=== PATIENT | male | born 1940 ===

== ENCOUNTER 2018-10-17 12:09 | Emergency (ER) | payer MEDICARE ==
[2018-10-17 12:30] VITALS: RESP 18
--- NOTE | 2018-10-17 14:20 | C.PDOC ---
History Of Present Illness 77 year old male presents to the ED for evaluation of right wrist pain which began after he tripped and fell in parking lot around 2 hours [employer]. Patient is complaining of pain and swelling to right wrist. He denies head injury, LOC, extremity numbness/weakness. Time Seen by Provider: 10/17/18 12:46 Chief Complaint (Nursing): Finger,Hand,&Wrist History Per: Patient History/Exam Limitations: no limitations Onset/Duration Of Symptoms: Hrs (2) Current Symptoms Are (Timing): Still Present Additional History Per: Patient PMH Reviewed: Historical Data, Nursing Documentation, Vital Signs - Medical History PMH: No Chronic Diseases - Surgical History Surgical History: No Surg Hx - Family History Family History: States: Unknown Family Hx - Immunization History Hx Tetanus Toxoid Vaccination: No Hx Influenza Vaccination: No Hx Pneumococcal Vaccination: No ED Course And Treatment O2 Sat by Pulse Oximetry: 98 (on RA) Pulse Ox Interpretation: Normal Disposition - Disposition Referrals: Jose Keen MD [Staff Provider] - Disposition: HOME/ ROUTINE Disposition Time: 14:19 Condition: STABLE Additional Instructions: Follow up with PMD and Orthopedist within 1-2 days. Return to ED if feel worse. Prescriptions: oxyCODONE/Acetaminophen [Percocet 5/325 mg Tab] 1 tab PO QID PRN #20 tab PRN Reason: Pain Instructions: Wrist Fracture (DC) Forms: [facility] (Maltese) - Clinical Impression Clinical Impression: Wrist fracture, right - PA / SECTION CHIEF / Resident Statement MD/DO has reviewed & agrees with the documentation as recorded. - Scribe Statement The provider has reviewed the documentation as recorded by the Scribe (Karen Enrique) All medical record entries made by the Scribe were at my direction and personally dictated by me. I have reviewed the chart and agree that the record accurately reflects my personal performance of the history, physical exam, medical decision making, and the department course for this patient. I have also personally directed, reviewed, and agree with the discharge instructions and disposition.
[2018-10-17 14:31] VITALS: BP 134/77; PULSE 83; TEMP 98.6; O2SAT 96
--- NOTE | 2018-10-17 15:47 | C.PDOC ---
History Of Present Illness 77 year old male presents to the ED for evaluation of right wrist pain which began after he tripped and fell in parking lot around 2 hours [employer]. Patient is complaining of pain and swelling to right wrist. He denies head injury, LOC, extremity numbness/weakness, dizziness, chest pain and shortness of breath. Time Seen by Provider: 10/17/18 12:46 Chief Complaint (Nursing): Finger,Hand,&Wrist History Per: Patient History/Exam Limitations: no limitations Onset/Duration Of Symptoms: Hrs (2) Current Symptoms Are (Timing): Still Present Quality: "Pain" Additional History Per: Patient Past Medical History Reviewed: Historical Data, Nursing Documentation, Vital Signs Vital Signs: Last Vital Signs Temp 98.6 F 10/17/18 14:30 Pulse 83 10/17/18 14:30 Resp 18 10/17/18 14:30 BP 134/77 10/17/18 14:30 Pulse Ox 96 10/17/18 14:30 - Medical History PMH: HTN Surgical History: No Surg Hx Family History: States: Unknown Family Hx - Social History Hx Alcohol Use: No Hx Substance Use: No - Immunization History Hx Tetanus Toxoid Vaccination: No Hx Influenza Vaccination: No Hx Pneumococcal Vaccination: No Review Of Systems Cardiovascular: Negative for: Chest Pain Respiratory: Negative for: Shortness of Breath Musculoskeletal: Positive for: Other (right wrist pain and swelling ) Neurological: Negative for: Weakness, Numbness, Dizziness, Other (head injury, LOC ) Physical Exam - Physical Exam Appears: Non-toxic, No Acute Distress Skin: Normal Color, Warm, Dry Head: Atraumatic, Normacephalic Eye(s): bilateral: Normal Inspection Neck: Normal ROM, Supple Chest: Symmetrical, No Deformity, No Tenderness Cardiovascular: Rhythm Regular Respiratory: Normal Breath Sounds Extremity: Normal ROM (to fingers of right hand ), Capillary Refill (less than 2 seconds ), Swelling (right wrist ) Pulses: Left Radial: Normal, Right Radial: Normal Neurological/Psych: Oriented x3, Normal Speech, Normal Cognition, Normal Sensation Gait: Steady ED Course And Treatment O2 Sat by Pulse Oximetry: 96 (on RA) Pulse Ox Interpretation: Normal Progress Note: Right wrist XR ordered, XR shows minimally displaced fracture of the distal radius and ulnar styloid. Sugar tong splint was applied by CP and checked by me. Arm sling was applied. On reassessment, patient is resting comfortably, showing no signs of distress and is stable for discharge. Patient advised to f/u with orthopedist within 1-2 days for further evaluation. Disposition - Disposition Referrals: Jose Keen MD [Staff Provider] - Disposition: HOME/ ROUTINE Disposition Time: 14:20 Condition: STABLE Additional Instructions: Follow up with PMD and Orthopedist within 1-2 days. Return to ED if feel worse. Prescriptions: oxyCODONE/Acetaminophen [Percocet 5/325 mg Tab] 1 tab PO QID PRN #20 tab PRN Reason: Pain Instructions: Wrist Fracture (DC) Forms: [employer] (Polish) - Clinical Impression Clinical Impression: Wrist fracture, right - PA / ELECTRONICS TECHNOLOGY INSTRUCTOR / Resident Statement MD/DO has reviewed & agrees with the documentation as recorded. - Scribe Statement The provider has reviewed the documentation as recorded by the Scribe (Karen Enrique) All medical record entries made by the Scribe were at my direction and personally dictated by me. I have reviewed the chart and agree that the record accurately reflects my personal performance of the history, physical exam, medical decision making, and the department course for this patient. I have also personally directed, reviewed, and agree with the discharge instructions and d isposition.
--- NOTE | 2018-10-17 16:22 | RAD ---
PROCEDURE: Right Wrist Radiographs. HISTORY: fall, injury COMPARISON: None available. FINDINGS: BONES: Impacted fracture deformity of the distal radius. Displaced fracture of the ulna styloid. Osseous demineralization. JOINTS: No dislocation. SOFT TISSUES: Soft tissue swelling. No evidence of radiopaque foreign body OTHER FINDINGS: None. IMPRESSION: Soft tissue swelling. Impacted fracture deformity of the distal radius. Displaced fracture deformity of the ulna styloid.
== END 2018-10-17 14:31 | disposition home or self-care (01) ==
LOC: C.ER 12:09
DX: S52.591A Other fractures of lower end of right radius, initial encounter for closed fracture (principal); S52.611A Displaced fracture of right ulna styloid process, initial encounter for closed fracture; W01.0XXA Fall on same level from slipping, tripping and stumbling without subsequent striking against object, initial encounter; Y92.481 Parking lot as the place of occurrence of the external cause